=== PATIENT | female | born 1945 | race Caucasian/White ===

== ENCOUNTER → 2016-06-24 | Outpatient (CLI) | payer OTHER ==
[~2016-06-24] MED LIST: ASPIRIN EC81 MG PO; ATORVASTATIN CA40 MG PO; BENEFIBE2 PO; CALCIUM CITRAT250 MG PO; CEPHALEXIN500 MG PO; EFFEXOR XR150 MG PO; FLONASE0.05 %; MULTIPLE VITAMIN PO; PROBIOTIC PO; VICODIN EQUIVAL1 TAB PO; ZYRTEC ALLERGY10 M1 PO
--- NOTE | 2016-06-24 14:31 | DIAGNOSTIC IMAGING REPORT ---
PROCEDURE: XR LUMBAR SPINE 2 OR 3 VIEWS INDICATION: SCIATICA, TECHNIQUE: Three views. COMPARISON: None. FINDINGS: Osseous structures and disc spaces are normal. No evidence of an acute process or fracture. Spinal stimulator. IMPRESSION: 1. Negative lumbar spine.
== END ==
LOC: XR SRH 13:52
DX: M54.32 Sciatica, left side (principal)

== ENCOUNTER 2016-08-04 10:15 | Outpatient (CLI) | payer OTHER ==
--- NOTE | 2016-08-04 15:48 | DIAGNOSTIC IMAGING REPORT ---
PROCEDURE: MG BILATERAL SCREENING W/CAD INDICATION: SCREENING TECHNIQUE: Bilateral CC and MLO digital views. COMPARISON: Compared to 07/20/2015, 07/24/2014, and 09/07/2012 FINDINGS: Computer-aided detection applied. Mildly dense with a few dystrophic calcifications. No change. IMPRESSION: 1. Negative mammogram. RESULT CODE: 1- Negative. A. A negative report should not delay biopsy if a dominant or clinically suspicious mass is present. 10-15% of cancers are not identified by x-ray. B. A negative report may reinforce clinical impression. C. Adenosis and dense breasts may obscure an underlying neoplasm. D. False positive reports average 6-10%. E.. A yearly screening mammogram is recommended. A reminder letter will be scheduled.
== END 2016-08-04 23:00 ==
LOC: MAM SRH 10:15
DX: Z12.31 Encounter for screening mammogram for malignant neoplasm of breast (principal)